=== PATIENT | female | born 1940 | race Caucasian/White ===

== ENCOUNTER 2023-09-05 12:43 | Outpatient (RCR) | payer MEDICARE | END 2023-10-03 15:01 | LOC: OPPGERO 12:43 | DX: F33.9 Major depressive disorder, recurrent, unspecified (principal); F41.1 Generalized anxiety disorder ==

== ENCOUNTER 2023-10-07 09:00 | Outpatient (RCR) | payer MEDICARE | END 2023-11-05 17:30 | disposition home or self-care (01) | LOC: OPPGERO 09:00 | DX: F33.8 Other recurrent depressive disorders (principal); F41.1 Generalized anxiety disorder ==

== ENCOUNTER 2023-11-06 09:00 | Outpatient (RCR) | payer MEDICARE | END 2023-12-04 09:45 | disposition still patient (30) | LOC: OPPGERO 09:00 | DX: F33.1 Major depressive disorder, recurrent, moderate (principal); F41.1 Generalized anxiety disorder ==